=== PATIENT | female | born 1995 | race Caucasian/White ===

== ENCOUNTER 2018-04-06 15:58 | Emergency (ER) | payer OTHER ==
[~2018-04-06] VITALS: Ht 167.6 cm; Wt 78.0 kg
[2018-04-06 16:26] LABS: BILIRUBIN NEGATIVE (NEGATIVE); BLOOD NEGATIVE (NEGATIVE); CLARITY SL CLOUDY (CLEAR); COLOR YELLOW (YELLOW); GLUCOSE NEGATIVE (NEGATIVE); KETONE TRACE (NEGATIVE); LEUKO ESTERASE NEGATIVE (NEGATIVE); NITRITE NEGATIVE (NEGATIVE); SPECIFIC GRAVITY 1.025 (1.005-1.030); UROBILINOGEN 0.2 E.U./dl (0.2-1.0)
[2018-04-06 16:33] LABS: BACTERIA 2+; EPITHELIAL CELLS TNTC; MUCOUS 1+; RBC 0-2 rbc/hpf (0-2)
[2018-04-06 16:36] LABS: URINE AMPHETAMINES < 1000 (1000ng/ml); URINE BARBITURATES < 200 (200ng/ml); URINE BENZODIAZEPINES < 200 (200ng/ml); URINE CANNABINOIDS (THC) < 50 (50ng/ml); URINE COCAINE < 300 (300ng/ml); URINE METHADONE < 300 (300ng/ml); URINE OPIATES < 300 (300ng/ml)
[2018-04-06 16:37] LABS: URINE PHENCYCLIDINE < 25 (25ng/ml)
[2018-04-06 16:42] LABS: BASO % 0.4 % (0.0-1.0); EOS % 0.2 % (1.0-4.0); HEMATOCRIT 37.1 % (37.0-47.0); HEMOGLOBIN 12.2 g/dl (12.0-16.0); LYMPH # 0.8 10*3/uL (1.3-4.4); LYMPH % 7.9 % (27.0-41.0); MEAN CELL VOLUME 90.3 fl (81.0-99.0); MEAN CORPUSCULAR HGB 29.7 pg (27.0-31.0); MEAN CORPUSCULAR HGB CONC 32.9 g/dl (33.0-37.0); MEAN PLATELET VOLUME 11.1 fl (9.6-12.3); MONO # 0.6 10*3/uL (0.1-1.0); MONO % 5.8 % (3.0-9.0); NEUT # 8.9 10*3/uL (2.3-7.9); NEUT % 85.3 % (47.0-73.0); PLATELET COUNT AUTOMATED 247 10*3/uL (130-400); RED BLOOD COUNT 4.11 10*6/uL (4.10-5.10); RED CELL DISTRI WIDTH 12.9 % (0-14.5); WHITE BLOOD COUNT 10.4 10*3/uL (4.8-10.8)
[2018-04-06 16:59] LABS: ALBUMIN 3.5 gm/dl (3.1-4.5); ALKALINE PHOSPHATASE 70 U/L (45-117); BUN 12 mg/dl (7-24); CHLORIDE 108 mmol/L (98-107); CREATININE 1.05 mg/dL (0.55-1.02); SGOT/AST 18 IU/L (3-35); SGPT/ALT 18 U/L (12-78); SODIUM 140 mmol/L (136-145); TOTAL PROTEIN 7.7 gm/dL (6.4-8.2)
[2018-04-06 17:00] LABS: TROPONIN I < 0.015 ng/ml (<0.045)
[2018-04-06] MEDS ORDERED: CITALOPRAM20 MG PO (17:48)
[2018-04-06] MEDS ORDERED: FALMINA-28 TAB1 EACH PO (17:48)
[2018-04-06] MEDS ORDERED: LEVAQUIN750 M1 PO (20:15)
== END 2018-04-06 20:32 | disposition home or self-care (01) ==
LOC: ED 15:58
PROVIDERS: Physician Assistant
DX: J06.9 Acute upper respiratory infection, unspecified (principal); R82.71 Bacteriuria; Z79.899 Other long term (current) drug therapy

== ENCOUNTER 2018-04-30 14:37 | Emergency (ER) | payer OTHER ==
[~2018-04-30] VITALS: Ht 165.1 cm; Wt 77.1 kg
[~2018-04-30 14:37] MED LIST: CITALOPRAM20 MG PO; FALMINA-28 TAB1 EACH PO; LEVAQUIN750 M1 PO
[2018-04-30] MEDS ORDERED: TRAZODONE50 MG PO (15:03)
[2018-04-30] MEDS ORDERED: Motrin,Rufen800 MG PO (16:34)
[2018-04-30] MEDS ORDERED: CYCLOBENZAPRINE5 M3 PO (16:34)
== END 2018-04-30 17:00 | disposition home or self-care (01) ==
LOC: ED 14:37
DX: M62.830 Muscle spasm of back (principal); M54.2 Cervicalgia; R07.81 Pleurodynia; Z91.010 Allergy to peanuts; Z79.899 Other long term (current) drug therapy; V89.2XXA Person injured in unspecified motor-vehicle accident, traffic, initial encounter; Y93.89 Activity, other specified; Y92.413 State road as the place of occurrence of the external cause; Y99.8 Other external cause status

== ENCOUNTER → 2018-10-23 | Outpatient (CLI) | payer OTHER ==
[~2018-10-23] MED LIST changes: +CYCLOBENZAPRINE5 M3 PO; +Motrin,Rufen800 MG PO; +TRAZODONE50 MG PO
== END | disposition home or self-care (01) ==
LOC: US 12:41
DX: C50.511 Malignant neoplasm of lower-outer quadrant of right female breast (principal)